=== PATIENT | male | born 1965 | race Hispanic/Latino ===

== ENCOUNTER → 2022-01-27 | Outpatient (CLI) | payer OTHER ==
[~2022-01-27] MED LIST: ACTOS45 MG; GLUCOVANCE 5-51 EACH; HALFPRIN81 MG; INVOKANA PO; LIPITOR10 MG PO; MONTELUKAST SOD10 MG PO; PLAVIX75 MG PO; VASOTEC5 MG PO
== END ==
LOC: US 09:41
PROVIDERS: ATTEND Internal Medicine
DX: R10.31 Right lower quadrant pain (principal); N50.811 Right testicular pain
CPT/HCPCS: 76870; 93976